=== PATIENT | female | born 1955 | race Two or more races ===

== ENCOUNTER 2016-10-23 15:02 | Emergency (ER) | payer OTHER ==
--- NOTE | 2016-10-23 15:49 | ER Document Report ---
ED Cardiac - General Mode of Arrival: Ambulatory Information source: Patient TRAVEL OUTSIDE OF THE [place] IN LAST 30 DAYS: No - HPI Patient complains to provider of: Other - chest wall pain, reproducible Chest pain radiation location: Back <NICHOLE TAPIA - Last Filed: 10/23/16 17:22> <KIRK HOROWITZ - Last Filed: 10/23/16 23:41> - General Chief Complaint: Chest Pain Stated Complaint: CHEST PAIN Notes: Patient is a 61-year-old female that presents to the emergency department today with complaints of reproducible chest pain. Patient states she had mild discomfort last night and the pain increased this morning upon awakening. Patient states that her pain is exacerbated with arm movement. Patient states the pain radiates to her right upper back with movement of her right upper extremity. Patient has a history of rheumatoid arthritis. Patient walks with a cane and does hold the cane in her right upper extremity at all times. Patient denies any recent travel, cough, or fevers. (NICHOLE TAPIA) - Related Data Allergies/Adverse Reactions: Penicillins Allergy (Verified 10/23/16 15:45) shellfish derived Allergy (Verified 10/23/16 16:52) Past Medical History - General Information source: Patient - Social History Smoking Status: Unknown if Ever Smoked Cigarette use (# per day): No Frequency of alcohol use: None Drug Abuse: None Lives with: Family Family History: Reviewed & Not Pertinent Musculoskeltal Medical History: Reports Hx Arthritis - Rheumatoid Surgical Hx: Negative <NICHOLE TAPIA - Last Filed: 10/23/16 17:22> Review of Systems - Review of Systems Constitutional: denies: Fever EENT: No symptoms reported Cardiovascular: See HPI, Chest pain - reproducible Respiratory: denies: Cough Gastrointestinal: No symptoms reported Genitourinary: No symptoms reported Female Genitourinary: No symptoms reported Musculoskeletal: See HPI, Joint pain - RUE pain radiating to right upper back Skin: No symptoms reported Hematologic/Lymphatic: No symptoms reported Neurological/Psychological: No symptoms reported -: Yes All other systems reviewed and negative <NICHOLE TAPIA - Last Filed: 10/23/16 17:22> Physical Exam <NICHOLE TAPIA - Last Filed: 10/23/16 17:22> <KIRK HOROWITZ - Last Filed: 10/23/16 23:41> - Vital signs Vitals: Temp Pulse Resp BP Pulse Ox 97.9 F 97 20 147/83 H 98 10/23/16 15:18 10/23/16 15:18 10/23/16 15:18 10/23/16 15:18 10/23/16 15:18 - Notes Notes: Physical Exam: General: Alert, appears well. HEENT: Normocephalic. Atraumatic. PERRL. Extraocular movements intact. Oropharynx clear. Neck: Supple. Non-tender. Respiratory: No respiratory distress. Clear and equal breath sounds bilaterally. Reproducible right chest wall tenderness with palpation. Cardiovascular: Regular rate and rhythm. Reproducible chest pain. Abdominal: Obese. Non-tender. No distension. Normal Bowel Sounds. Back: Right medial scapula tenderness with palpation, Right axilla tenderness with palpation which reproduces pain down the right arm. No deformity or step off. Extremities: Moves all four extremities. Upper extremities: Right axilla tenderness with palpation which reproduces pain down the right arm. Lower extremities: Normal inspection. No edema. Normal ROM. Neurological: Normal cognition. AAOx4. Normal speech. Psychological: Normal affect. Normal Mood. Skin: Warm. Dry. Normal color. (NICHOLE TAPIA) Course - Laboratory Result Diagrams: 10/23/16 15:35 10/23/16 15:35 <NICHOLE TAPIA - Last Filed: 10/23/16 17:22> - Laboratory Result Diagrams: 10/23/16 15:35 10/23/16 15:35 - Diagnostic Test Radiology reviewed: Reports reviewed - EKG Interpretation by Ks EKG shows normal: Sinus rhythm Rate: Normal Rhythm: NSR <KIRK HOROWITZ - Last Filed: 10/23/16 23:41> - Re-evaluation Re-evalutation: 10/23/16 19:30 Patient is a 61-year-old female who comes in complaining of chest pain. It is right-sided and reproducible. Did not start today. Patient feels better after soma. No acute findings on EKG. Troponin negative 2. Patient will be discharged home with pain medication and is to follow-up with her doctor. Understands agrees with plan. Stable for discharge. (KIRK HOROWITZ) - Vital Signs Vital signs: Temp Pulse Resp BP Pulse Ox 98.1 F 73 18 137/85 H 96 10/23/16 20:30 10/23/16 20:30 10/23/16 20:30 10/23/16 20:30 10/23/16 20:30 - Laboratory Laboratory results interpreted by me: 10/23/16 10/23/16 15:35 15:35 RDW 14.4 H Glucose 124 H Discharge <NICHOLE TAPIA - Last Filed: 10/23/16 17:22> <KIRK HOROWITZ - Last Filed: 10/23/16 23:41> - Discharge Clinical Impression: Atypical chest pain, Upper back pain on right side Condition: Stable Disposition: HOME, SELF-CARE Instructions: Chest Wall Pain ([facility]), Upper Back Strain ([facility]) Prescriptions: Carisoprodol [Soma 350 Mg Tablet] 350 mg PO BIDP PRN #30 tablet PRN Reason: Referrals: RUTH KIRK MD [Primary Care Provider] - Follow up in 3-5 days Scribe Attestation: 10/23/16 23:41 I personally performed the services described in the documentation, reviewed and edited the documentation which was dictated to the scribe in my presence, and it accurately records my words and actions. (KIRK HOROWITZ) Scribe Documentation - Scribe Written by Scribe:: Aguilar Vasquez, 10/23/2016 1726 acting as scribe for :: Alexandra <NICHOLE TAPIA - Last Filed: 10/23/16 17:22>
[2016-10-23 15:58] LABS: ABSOLUTE EOSINOPHILS # (AUTO) 0.1 10^3/uL (0.0-0.6); ABSOLUTE MONOCYTES (AUTO) 0.4 10^3/uL (0.1-1.4); ABSOLUTE NEUT (AUTO) 4.4 10^3/uL (1.7-8.2); BASOPHILS % (AUTO) 0.8 % (0-2); EOSINOPHILS % (AUTO) 1.5 % (0-6); HEMATOCRIT 38.1 % (36.0-47.0); HEMOGLOBIN 12.5 g/dL (12.0-15.5); HGB HCT DIFFERENCE -0.6; MEAN CORPUSCULAR HGB CONC 32.7 g/dL (32.0-36.0); MEAN CORPUSCULAR VOLUME 86 fl (80-97); MONOCYTES % (AUTO) 7.1 % (3-13); RED BLOOD COUNT 4.46 10^6/uL (3.72-5.28); RED CELL DISTRIBUTION WIDTH 14.4 % (11.5-14.0); SEGMENTED NEUTROPHILS % (AUTO) 73.6 % (42-78)
[2016-10-23 16:16] LABS: ALANINE AMINOTRANSFERASE 42 U/L (9-52); ALKALINE PHOSPHATASE 71 U/L (38-126); ANION GAP 14 (5-19); ASPARTATE AMINO TRANSFERASE 27 U/L (14-36); BILIRUBIN,DIRECT 0.2 mg/dL (0.0-0.4); BILIRUBIN,TOTAL 0.6 mg/dL (0.2-1.3); BLOOD UREA NITROGEN 19 mg/dL (7-20); CALCIUM 8.9 mg/dL (8.4-10.2); CARBON DIOXIDE 22 mmol/L (22-30); CHLORIDE 105 mmol/L (98-107); CREATINE KINASE 84 U/L (30-135); CREATININE RESULT 0.76 mg/dL (0.52-1.25); GLUCOSE 124 mg/dL (75-110); POTASSIUM 4.3 mmol/L (3.6-5.0); TOTAL PROTEIN 6.3 g/dL (6.3-8.2)
[2016-10-23] MEDS ORDERED: DIAZEPAM 2 MG TABLET PO ONE (16:18)
[2016-10-23 16:28] LABS: CREATINE KINASE MB 0.91 ng/mL (<4.55)
[2016-10-23 16:31] LABS: TROPONIN I < 0.012 ng/mL
[2016-10-23] MEDS ORDERED: MORPHINE SULFATE 10 MG/ML INJ IV ONE (18:05)
--- NOTE | 2016-10-23 18:06 | EKG REPORT ---
SEVERITY:- BORDERLINE ECG - SINUS RHYTHM BORDERLINE LEFT AXIS DEVIATION BORDERLINE PROLONGED QT INTERVAL : Confirmed by: Rom Lou MD 23-Oct-2016 18:05:22
[2016-10-23] MEDS ORDERED: CARISOPRODOL 350 MG TABLET PO ONE (19:09)
[2016-10-23 20:31] VITALS: BP 137/85
== END 2016-10-23 20:32 | disposition home or self-care (01) ==
LOC: ER 15:02
DX: R07.9 Chest pain, unspecified (principal); M54.6 Pain in thoracic spine
CPT/HCPCS: 93005; 99285; 96374; 36415; 82553; 82550; 85025; 80053; 84484; 71010; 93010; J3490 ×2; J2270

== ENCOUNTER → 2016-12-14 | Outpatient (CLI) | payer OTHER ==
--- NOTE | 2016-12-29 08:16 | WOMENS IMAGING REPORT ---
EXAM DESCRIPTION: BILAT DIAGNOSTIC MAMMO W/CAD; U/S BREAST UNILATERAL, COMPL COMPLETED DATE/TIME: 12/14/2016 9:17 am; 12/14/2016 10:24 am REASON FOR STUDY: R92.8; RT BREAST,R92.8 R92.8 OTH ABN AND INCONCLUSIVE FINDINGS ON DX IMAGING OF B RE COMPARISON: None. Lexiscan myocardial perfusion Cardiolite exam report only 11/12/2016 Prior mammograms 07/18/2014, 12/27/2011 TECHNIQUE: Standard craniocaudal and mediolateral oblique views of each breast recorded using digita l acquisition. Right breast breast craniocaudad and 90 mediolateral tomosynthesis. Right breast ultrasound LIMITATIONS: None. FINDINGS: RIGHT BREAST MASSES: No suspicious masses. CALCIFICATIONS: No new or suspicious calcifications. ARCHITECTURAL DISTORTION: None. DEVELOPING DENSITY: None. ASYMMETRY: None noted. OTHER: No other significant findings. LEFT BREAST MASSES: No suspicious masses. CALCIFICATIONS: No new or suspicious calcifications. ARCHITECTURAL DISTORTION: None. DEVELOPING DENSITY: None. ASYMMETRY: None noted. OTHER: No other significant finding. Read with the assistance of CAD: .[facility] - R2 Cenova Version 1.3 .[facility] Imaging - R2 Cenova Version 1.3 .[facility] Imaging - R2 Cenova Version 2.4 .[facility] - R2 Cenova Version 2.4 .[facility] - R2 Conditioning Machine Operator Version 9.2 Right breast ultrasound: Ultrasound of the entire right breast was performed. No cystic or solid lesions. No focal acoustic absorption. No focal findings. IMPRESSION: No mammographic or sonographic evidence for malignancy bilaterally. Outside report demonstrates focal right breast uptake with sestamibi. Sestamibi breast parenchymal u ptake could be seen and occult malignancy, and MRI bilateral breasts with contrast is recommended for follow-up. BREAST DENSITY: b. There are scattered areas of fibroglandular density. BIRAD: 0 Incomplete: Needs additional imaging evaluation and/or prior mammograms for comparison. MRI bilateral breasts with contrast recommended RECOMMENDATION: RECOMMENDED FOLLOW UP: Bilateral breast MRI with contrast is recommended, to exclude occult malignancy in the right breast. SPECIFIC INTERVENTION/IMAGING/CONSULTATION RECOMMENDED:Bilateral breast MRI COMMUNICATION:These results were discussed with Dr Sousa's nurse, Emily. COMMENT: The patient has been notified of the results by letter per MQSA requirements. Additional no tification policies are in place for contacting patient with suspicious or incomplete findings. Quality ID #[id number]: The [employer] recommends an annual screening mammogram for women aged 40 years or over. This facility utilizes a reminder system to ensure that all patients receive reminder letters, and/or direct phone calls for appointments. This includes reminders for routine scr eening mammograms, diagnostic mammograms, or other Breast Imaging Interventions when appropriate. Th is patient will be placed in the appropriate reminder system. The [employer] (ACR) has developed recommendations for screening MRI of the breast s in certain patient populations, to be used in conjunction with mammography. Breast MRI surveillanc e may be appropriate for women with more than 20% lifetime risk of developing breast cancer as deter mined by genetic testing, significant family history of the disease, or history of mantle radiation f or Hodgkins Disease. ACR Practice Guidelines 2008. DBT Technology DBT is a type of tomographic mammography. With conventional mammography, overlapping breast tissue ma y make lesions difficult to detect, even with good compression. DBT uses an x-ray tube that rotates a round the breast, taking images at different angles. These images are then combined to create thin sl ices of the breast that the radiologist can view as a 3D reconstruction. The [employer] unit can perform full-field digital mammograms (2D imaging); or DBT (3D imaging); or both, in a combination mode that quickly performs both the mammogram and the tomosynthesis scan while the breast is still compressed. PQRS 6045F: Fluoroscopic imaging is not utilized for breast tomosynthesis. TECHNICAL DOCUMENTATION: FINDING NUMBER: (1) ASSESSMENT: (1) JOB ID: [id number] [employer]- All Rights Reserved
--- NOTE | 2016-12-29 08:16 | WOMENS IMAGING REPORT ---
EXAM DESCRIPTION: BILAT DIAGNOSTIC MAMMO W/CAD; U/S BREAST UNILATERAL, COMPL COMPLETED DATE/TIME: 12/14/2016 9:17 am; 12/14/2016 10:24 am REASON FOR STUDY: R92.8; RT BREAST,R92.8 R92.8 OTH ABN AND INCONCLUSIVE FINDINGS ON DX IMAGING OF B RE COMPARISON: None. Lexiscan myocardial perfusion Cardiolite exam report only 11/12/2016 Prior mammograms 07/18/2014, 12/27/2011 TECHNIQUE: Standard craniocaudal and mediolateral oblique views of each breast recorded using digita l acquisition. Right breast breast craniocaudad and 90 mediolateral tomosynthesis. Right breast ultrasound LIMITATIONS: None. FINDINGS: RIGHT BREAST MASSES: No suspicious masses. CALCIFICATIONS: No new or suspicious calcifications. ARCHITECTURAL DISTORTION: None. DEVELOPING DENSITY: None. ASYMMETRY: None noted. OTHER: No other significant findings. LEFT BREAST MASSES: No suspicious masses. CALCIFICATIONS: No new or suspicious calcifications. ARCHITECTURAL DISTORTION: None. DEVELOPING DENSITY: None. ASYMMETRY: None noted. OTHER: No other significant finding. Read with the assistance of CAD: .[facility] - R2 Cenova Version 1.3 .[facility] Imaging - R2 Cenova Version 1.3 .[facility] Imaging - R2 Cenova Version 2.4 .[facility] - R2 Cenova Version 2.4 .[facility] - R2 Erp Manager Version 9.2 Right breast ultrasound: Ultrasound of the entire right breast was performed. No cystic or solid lesions. No focal acoustic absorption. No focal findings. IMPRESSION: No mammographic or sonographic evidence for malignancy bilaterally. Outside report demonstrates focal right breast uptake with sestamibi. Sestamibi breast parenchymal u ptake could be seen and occult malignancy, and MRI bilateral breasts with contrast is recommended for follow-up. BREAST DENSITY: b. There are scattered areas of fibroglandular density. BIRAD: 0 Incomplete: Needs additional imaging evaluation and/or prior mammograms for comparison. MRI bilateral breasts with contrast recommended RECOMMENDATION: RECOMMENDED FOLLOW UP: Bilateral breast MRI with contrast is recommended, to exclude occult malignancy in the right breast. SPECIFIC INTERVENTION/IMAGING/CONSULTATION RECOMMENDED:Bilateral breast MRI COMMUNICATION:These results were discussed with Dr Sousa's nurse, Emily. COMMENT: The patient has been notified of the results by letter per MQSA requirements. Additional no tification policies are in place for contacting patient with suspicious or incomplete findings. Quality ID #225: The [employer] [place] [employer] recommends an annual screening mammogram for women aged 40 years or over. This facility utilizes a reminder system to ensure that all patients receive reminder letters, and/or direct phone calls for appointments. This includes reminders for routine scr eening mammograms, diagnostic mammograms, or other Breast Imaging Interventions when appropriate. Th is patient will be placed in the appropriate reminder system. The [employer] [place] [employer] (ACR) has developed recommendations for screening MRI of the breast s in certain patient populations, to be used in conjunction with mammography. Breast MRI surveillanc e may be appropriate for women with more than 20% lifetime risk of developing breast cancer as deter mined by genetic testing, significant family history of the disease, or history of mantle radiation f or Hodgkins Disease. ACR Practice Guidelines 2008. DBT Technology DBT is a type of tomographic mammography. With conventional mammography, overlapping breast tissue ma y make lesions difficult to detect, even with good compression. DBT uses an x-ray tube that rotates a round the breast, taking images at different angles. These images are then combined to create thin sl ices of the breast that the radiologist can view as a 3D reconstruction. The [employer] unit can perform full-field digital mammograms (2D imaging); or DBT (3D imaging); or both, in a combination mode that quickly performs both the mammogram and the tomosynthesis scan while the breast is still compressed. PQRS 6045F: Fluoroscopic imaging is not utilized for breast tomosynthesis. TECHNICAL DOCUMENTATION: FINDING NUMBER: (1) ASSESSMENT: (1) JOB ID: [id number] [employer]- All Rights Reserved
== END ==
LOC: WI 09:00
PROVIDERS: ATTEND Obstetrics & Gynecology
DX: R92.8 Other abnormal and inconclusive findings on diagnostic imaging of breast (principal)
CPT/HCPCS: 76641; G0204; 77066

== ENCOUNTER → 2017-01-03 | Outpatient (CLI) | payer OTHER ==
--- NOTE | 2017-01-05 10:11 | RADIOLOGY REPORT (SQ) ---
EXAM DESCRIPTION: MRI BREAST BILAT W AND/OR WO COMPLETED DATE/TIME: 01/03/2017 2:19 pm REASON FOR STUDY: ABN LEXISCAN R92.8 OTH ABN AND INCONCLUSIVE FINDINGS ON DX IMAGING OF ODIN R93.1 ABNORMAL FINDINGS ON DX IMAGING OF HEART AND COR CIRC COMPARISON: Mammograms 12/24/2011, 07/18/2014, 12/14/2016 Breast ultrasound 07/18/2014, 12/14/2016 PATHOLOGIC CORRELATION: No biopsy performed. Patient had a Cardiolite sestamibi exam demonstrating some right breast activity on outside study. CONTRAST TYPE AND DOSE: 20 mL Multihance. RENAL FUNCTION: GFR > 60. TECHNIQUE: MR imaging performed with a dedicated breast coil. Pre contrast T1 and T2 weighted images . Pre contrast and post contrast enhanced T1 weighted images with fat saturation. Subtraction images, 3D thick and thin MIPS, and kinetic analysis performed on an independent workstat ion. ([employer] workstation) Magnet strength: 1.5 T LIMITATIONS: None. FINDINGS: BREAST DENSITY: b. There are scattered areas of fibroglandular density. BACKGROUND PARENCHYMAL ENHANCEMENT:None. RIGHT BREAST: No enhancing or suspicious masses. No clumped, regional/segmental ductal enhancement. CHEST WALL: Normal tissue planes. No abnormal internal mammary nodes. AXILLA: Normal axillary and retro-pectoral nodes. LEFT BREAST:No enhancing or suspicious masses. No clumped, regional/segmental ductal enhancement. CHEST WALL: Normal tissue planes. No abnormal internal mammary nodes. AXILLA: Normal axillary and retro-pectoral nodes. OTHER:No identified liver, bone, or lung lesions. No other significant incidental findings. IMPRESSION: NORMAL MR OF THE BREASTS. BIRAD: RIGHT BREAST: 1 Negative. LEFT BREAST: 1 Negative. RECOMMENDATION: RECOMMENDED FOLLOW-UP: Please continue bilateral screening mammography in December 2017 TECHNICAL DOCUMENTATION: JOB ID: [id number] [employer]- All Rights Reserved
== END ==
LOC: RAD 12:21
PROVIDERS: ATTEND Obstetrics & Gynecology
DX: R92.8 Other abnormal and inconclusive findings on diagnostic imaging of breast (principal); R93.1 Abnormal findings on diagnostic imaging of heart and coronary circulation
CPT/HCPCS: 82565; A9576; C8906; 77059

== ENCOUNTER → 2017-11-07 | Outpatient (CLI) | payer OTHER ==
[2017-11-07 10:18] LABS: HEMATOCRIT 39.2 % (36.0-47.0); HEMOGLOBIN 12.8 g/dL (12.0-15.5); MEAN CORPUSCULAR HEMOGLOBIN 28.1 pg (27.0-33.4); MEAN CORPUSCULAR HGB CONC 32.7 g/dL (32.0-36.0); MEAN CORPUSCULAR VOLUME 86 fl (80-97); PLATELET COUNT 183 10^3/uL (150-450); RED BLOOD COUNT 4.55 10^6/uL (3.72-5.28); RED CELL DISTRIBUTION WIDTH 14.1 % (11.5-14.0); WHITE BLOOD COUNT 4.9 10^3/uL (4.0-10.5)
[2017-11-07 10:37] LABS: ALANINE AMINOTRANSFERASE 40 U/L (9-52); ALBUMIN 3.9 g/dL (3.5-5.0); ALKALINE PHOSPHATASE 63 U/L (38-126); ANION GAP 11 (5-19); ASPARTATE AMINO TRANSFERASE 28 U/L (14-36); BILIRUBIN,DIRECT 0.3 mg/dL (0.0-0.4); BILIRUBIN,TOTAL 0.8 mg/dL (0.2-1.3); BLOOD UREA NITROGEN 20 mg/dL (7-20); CALCIUM 9.1 mg/dL (8.4-10.2); CARBON DIOXIDE 27 mmol/L (22-30); CHLORIDE 106 mmol/L (98-107); CREATINE KINASE 98 U/L (30-135); GLUCOSE 109 mg/dL (75-110); POTASSIUM 4.3 mmol/L (3.6-5.0); SODIUM 143.7 mmol/L (137-145); TOTAL PROTEIN 6.3 g/dL (6.3-8.2); TRIGLYCERIDES 157 mg/dL (<150)
[2017-11-07 10:48] LABS: DIRECT LDL 51 mg/dL (<100)
[2017-11-07 10:52] LABS: VLDL CHOLESTEROL 31.4 mg/dL (10-31)
== END ==
LOC: OD 09:22
PROVIDERS: ATTEND Obstetrics & Gynecology
DX: E11.9 Type 2 diabetes mellitus without complications (principal); I10 Essential (primary) hypertension; E78.5 Hyperlipidemia, unspecified; E03.9 Hypothyroidism, unspecified; M05.9 Rheumatoid arthritis with rheumatoid factor, unspecified; Z79.899 Other long term (current) drug therapy
CPT/HCPCS: 36415; 80053; 80061; 82550; 83036; 84443; 85027

== ENCOUNTER 2018-11-16 16:16 | Emergency (ER) | payer MEDICARE, OTHER ==
--- NOTE | 2018-11-16 17:06 | ER Document Report ---
ED Medical Screen (RME) - General Chief Complaint: Shortness Of Breath Stated Complaint: SOB Time Seen by Provider: 11/16/18 17:01 Primary Care Provider: RUTH KIRK MD [Primary Care Provider] - Follow up as needed Information source: Patient, Dr. Office Notes: Patient presents to the emergency department for chest pain shortness of breath since last week. Patient was evaluated by Dr. Kirk today labs chest x-ray EKG was done he reports he could not find anything wrong but is concerned about the patient. He reports she is not doing very well. Upon assessment patient is laughing no distress. She was instructed that Dr. Kirk was very concerned about her and labs and EKG would be repeated. I have greeted and performed a rapid initial assessment of this patient. A comprehensive ED assessment and evaluation of the patient, analysis of test results and completion of the medical decision making process will be conducted by additional ED providers. Dictation of this chart was performed using voice recognition software; therefore, there may be some unintended grammatical errors. TRAVEL OUTSIDE OF THE [place] IN LAST 30 DAYS: No - Related Data Allergies/Adverse Reactions: acetaminophen [From Vicodin] Allergy (Verified 11/16/18 17:24) hydrocodone [From Vicodin] Allergy (Verified 11/16/18 17:24) Penicillins Allergy (Verified 10/23/16 15:45) shellfish derived Allergy (Verified 10/23/16 16:52) Past Medical History Renal/ Medical History: Denies: Hx Peritoneal Dialysis Musculoskeltal Medical History: Reports Hx Arthritis - Rheumatoid Physical Exam - Vital signs Vitals: Temp Pulse Resp BP Pulse Ox 98.1 F 88 16 133/75 H 98 11/16/18 16:24 11/16/18 16:24 11/16/18 16:24 11/16/18 16:24 11/16/18 16:24 Course - Vital Signs Vital signs: Temp Pulse Resp BP Pulse Ox 98.1 F 88 16 133/75 H 98 11/16/18 16:24 11/16/18 16:24 11/16/18 16:24 11/16/18 16:24 11/16/18 16:24 Doctor's Discharge - Discharge Referrals: RUTH KIRK MD [Primary Care Provider] - Follow up as needed
[2018-11-16 18:51] LABS: ABSOLUTE EOSINOPHILS # (AUTO) 0.1 10^3/uL (0.0-0.6); ABSOLUTE LYMPHOCYTES (AUTO) 0.6 10^3/uL (0.5-4.7); ABSOLUTE MONOCYTES (AUTO) 0.3 10^3/uL (0.1-1.4); ABSOLUTE NEUT (AUTO) 3.6 10^3/uL (1.7-8.2); EOSINOPHILS % (AUTO) 1.5 % (0-6); HEMATOCRIT 38.5 % (36.0-47.0); HEMOGLOBIN 12.8 g/dL (12.0-15.5); LYMPHOCYTES % (AUTO) 13.7 % (13-45); MEAN CORPUSCULAR HEMOGLOBIN 28.7 pg (27.0-33.4); MEAN CORPUSCULAR HGB CONC 33.2 g/dL (32.0-36.0); MEAN CORPUSCULAR VOLUME 86 fl (80-97); MONOCYTES % (AUTO) 7.1 % (3-13); PLATELET COUNT 159 10^3/uL (150-450); RED BLOOD COUNT 4.47 10^6/uL (3.72-5.28); RED CELL DISTRIBUTION WIDTH 14.2 % (11.5-14.0); SEGMENTED NEUTROPHILS % (AUTO) 76.7 % (42-78); TOTAL CELLS COUNTED % (AUTO) 100 %; WHITE BLOOD COUNT 4.6 10^3/uL (4.0-10.5)
[2018-11-16 18:55] LABS: INTERNATIONAL RATION (INR) 0.97; PROTHROMBIN TIME 13.4 SEC (11.4-15.4)
[2018-11-16 19:13] LABS: ALANINE AMINOTRANSFERASE 33 U/L (9-52); ALBUMIN 3.8 g/dL (3.5-5.0); ALKALINE PHOSPHATASE 58 U/L (38-126); ANION GAP 8 (5-19); ASPARTATE AMINO TRANSFERASE 27 U/L (14-36); BILIRUBIN,DIRECT 0.2 mg/dL (0.0-0.4); BILIRUBIN,TOTAL 0.4 mg/dL (0.2-1.3); BLOOD UREA NITROGEN 17 mg/dL (7-20); CALCIUM 9.1 mg/dL (8.4-10.2); CARBON DIOXIDE 27 mmol/L (22-30); CHLORIDE 104 mmol/L (98-107); CREATINE KINASE 131 U/L (30-135); GLUCOSE 119 mg/dL (75-110); POTASSIUM 4.1 mmol/L (3.6-5.0); SODIUM 139.2 mmol/L (137-145); TOTAL PROTEIN 6.1 g/dL (6.3-8.2)
[2018-11-16 19:24] LABS: CREATINE KINASE MB 1.14 ng/mL (<4.55)
[2018-11-16 19:28] LABS: TROPONIN I < 0.012 ng/mL
--- NOTE | 2018-11-16 19:41 | EKG REPORT ---
SEVERITY:- BORDERLINE ECG - SINUS RHYTHM BORDERLINE LEFT AXIS DEVIATION BORDERLINE T ABNORMALITIES, ANTERIOR LEADS BORDERLINE PROLONGED QT INTERVAL : Confirmed by: Mirta Dubon MD 16-Nov-2018 19:40:47
--- NOTE | 2018-11-16 21:10 | ER Document Report ---
ED Respiratory Problem - General Chief Complaint: Shortness Of Breath Stated Complaint: SOB Time Seen by Provider: 11/16/18 17:01 Primary Care Provider: RUTH KIRK MD [Primary Care Provider] - Follow up as needed Notes: Patient is a 63-year-old female that comes emergency department for chief complaint of intermittent shortness of breath over the past week. She states that this is not constant, at times she feels like there is "mucus in her chest", she denies cough, fever, dizziness, chest pain, nausea/vomiting, abdominal pain. She also reports intermittent cramps in her legs. Past medical history includes rheumatoid arthritis (on weekly methotrexate and on Plaquenil), thyroidism, hyperlipidemia, and she has limited mobility because of rheumatoid arthritis damage in her legs. She walks minimally with a walker. She lives at home with her son who is at bedside. She was seen by her primary care Dr. Sánchez, sent over here for further evaluation after a negative chest x-ray. TRAVEL OUTSIDE OF THE [place] IN LAST 30 DAYS: No - Related Data Allergies/Adverse Reactions: acetaminophen [From Vicodin] Allergy (Verified 11/16/18 17:24) hydrocodone [From Vicodin] Allergy (Verified 11/16/18 17:24) Penicillins Allergy (Verified 10/23/16 15:45) shellfish derived Allergy (Verified 10/23/16 16:52) Past Medical History - General Information source: Patient, [facility] - Social History Smoking Status: Former Smoker Frequency of alcohol use: None Drug Abuse: None Lives with: Family Family History: Reviewed & Not Pertinent Patient has suicidal ideation: No Patient has homicidal ideation: No - Past Medical History Cardiac Medical History: Reports: Hx Hypercholesterolemia, Hx Hypertension Pulmonary Medical History: Reports: Hx Asthma Endocrine Medical History: Reports: Hx Diabetes Mellitus Type 2 Renal/ Medical History: Denies: Hx Peritoneal Dialysis Musculoskeletal Medical History: Reports Hx Arthritis - Rheumatoid Past Surgical History: Reports: Hx Tubal Ligation Review of Systems - Review of Systems Constitutional: No symptoms reported EENT: No symptoms reported Cardiovascular: See HPI Respiratory: See HPI Gastrointestinal: No symptoms reported Genitourinary: No symptoms reported Female Genitourinary: No symptoms reported Musculoskeletal: See HPI Skin: No symptoms reported Hematologic/Lymphatic: No symptoms reported Neurological/Psychological: No symptoms reported Physical Exam - Vital signs Vitals: Temp Pulse Resp BP Pulse Ox 98.1 F 88 16 133/75 H 98 11/16/18 16:24 11/16/18 16:24 11/16/18 16:24 11/16/18 16:24 11/16/18 16:24 - Notes Notes: GENERAL: Alert, interacts well. No acute distress. Obese HEAD: Normocephalic, atraumatic. EYES: Pupils equal, round, and reactive to light. Extraocular movements intact. ENT: Oral mucosa moist, tongue midline. Oropharynx unremarkable. Airway patent. NECK: Full range of motion. Supple. Trachea midline. LUNGS: Clear to auscultation bilaterally, no wheezes, rales, or rhonchi. No respiratory distress. HEART: Regular rate and rhythm. No murmur ABDOMEN: Soft, non-tender. Non-distended. Bowel sounds present in all 4 quadrants. GENITOURINARY: Deferred EXTREMITIES: Moves all 4 extremities spontaneously. No edema, normal radial and dorsalis pedis pulses bilaterally. No cyanosis. BACK: no cervical, thoracic, lumbar midline tenderness. No saddle anesthesia, normal distal neurovascular exam. NEUROLOGICAL: Alert and oriented x3. Normal speech. Cranial nerves II through XII grossly intact. PSYCH: Normal affect, normal mood. SKIN: Warm, dry, normal turgor. No rashes or lesions noted. Course - Re-evaluation Re-evalutation: Patient denies shortness of breath on my evaluation. She denies any other symptoms as well. She is alert and well-appearing. I do not see any swelling in the lower extremities. She is not hypoxic, tachypneic, and has no signs of distress. She is smiling, laughing, well-appearing. Chest x-ray from earlier was accessed by the system and this was noted to be normal. Troponin is not elevated, chemistry unremarkable, CBC unremarkable. Because of reported leg cramps earlier magnesium was checked but was unremarkable. I discussed with patient. She is requesting to leave. Because of her immobility and history of rheumatoid arthritis I did recommend at least d-dimer evaluation for her intermittent shortness of breath symptoms if not a CTA. Patient agrees to d-dimer. D-dimer was found to be negative. As result I do have a low suspicion of any acute abnormality causing her symptoms. Patient states that she will follow-up closely with your primary care, she was discharged with return precautions. - Vital Signs Vital signs: Temp Pulse Resp BP Pulse Ox 97.3 F 88 17 144/89 H 98 11/16/18 22:00 11/16/18 16:24 11/16/18 21:10 11/16/18 21:10 11/16/18 21:10 - Laboratory Result Diagrams: 11/16/18 17:45 11/16/18 17:45 Laboratory results interpreted by me: 11/16/18 11/16/18 17:45 17:45 RDW 14.2 H Glucose 119 H Total Protein 6.1 L - EKG Interpretation by Me Additional EKG results interpreted by me: EKG shows sinus rhythm, no T wave inversions or ST segment changes in consecutive leads, normal axis. Discharge - Discharge Clinical Impression: Shortness of breath, Leg cramps Condition: Stable Disposition: HOME, SELF-CARE Additional Instructions: Your evaluation and work-up at this time is reassuring. Follow-up closely with primary care for additional evaluation and treatment. Return if you worsen including return to difficulty breathing, chest pain, fever/chills, swelling of your legs, or any other concerning or worsening symptoms. Referrals: RUTH KIRK MD [Primary Care Provider] - Follow up as needed
[2018-11-16 21:44] VITALS: BP 144/89
== END 2018-11-16 22:01 | disposition home or self-care (01) ==
LOC: ER 16:16
DX: J45.909 Unspecified asthma, uncomplicated (principal); R06.02 Shortness of breath; R25.2 Cramp and spasm; E11.9 Type 2 diabetes mellitus without complications; M06.9 Rheumatoid arthritis, unspecified; Z79.899 Other long term (current) drug therapy; Z87.891 Personal history of nicotine dependence; Z88.6 Allergy status to analgesic agent; Z88.5 Allergy status to narcotic agent; Z88.0 Allergy status to penicillin; Z91.013 Allergy to seafood
CPT/HCPCS: 36415; 80053; 82550; 82553; 83735; 84484; 85025; 85379; 85610; 93005; 93010; 99285

== ENCOUNTER → 2018-11-16 | Outpatient (CLI) | payer MEDICARE, OTHER ==
[2018-11-16 11:55] LABS: ABSOLUTE EOSINOPHILS # (AUTO) 0.1 10^3/uL (0.0-0.6); ABSOLUTE LYMPHOCYTES (AUTO) 0.6 10^3/uL (0.5-4.7); ABSOLUTE MONOCYTES (AUTO) 0.3 10^3/uL (0.1-1.4); ABSOLUTE NEUT (AUTO) 2.9 10^3/uL (1.7-8.2); EOSINOPHILS % (AUTO) 1.5 % (0-6); HEMATOCRIT 38.3 % (36.0-47.0); HEMOGLOBIN 12.9 g/dL (12.0-15.5); LYMPHOCYTES % (AUTO) 15.9 % (13-45); MEAN CORPUSCULAR HEMOGLOBIN 28.7 pg (27.0-33.4); MEAN CORPUSCULAR HGB CONC 33.6 g/dL (32.0-36.0); MEAN CORPUSCULAR VOLUME 85 fl (80-97); MONOCYTES % (AUTO) 7.7 % (3-13); PLATELET COUNT 136 10^3/uL (150-450); RED BLOOD COUNT 4.49 10^6/uL (3.72-5.28); RED CELL DISTRIBUTION WIDTH 14.1 % (11.5-14.0); SEGMENTED NEUTROPHILS % (AUTO) 73.9 % (42-78); TOTAL CELLS COUNTED % (AUTO) 100 %; WHITE BLOOD COUNT 3.9 10^3/uL (4.0-10.5)
--- NOTE | 2018-11-16 12:40 | RADIOLOGY REPORT (SQ) ---
EXAM DESCRIPTION: CHEST PA/LATERAL COMPLETED DATE/TIME: 11/16/2018 12:06 pm REASON FOR STUDY: CHEST PAIN,SOB COMPARISON: Two-view chest 06/24/2014, 09/14/2012 EXAM PARAMETERS: NUMBER OF VIEWS: two views TECHNIQUE: Digital Frontal and Lateral radiographic views of the chest acquired. RADIATION DOSE: NA LIMITATIONS: none FINDINGS: LUNGS AND PLEURA: No opacities, masses or pneumothorax. No pleural effusion. MEDIASTINUM AND HILAR STRUCTURES: No masses or contour abnormalities. HEART AND VASCULAR STRUCTURES: Heart normal size. No evidence for failure. BONES: No acute findings. HARDWARE: None in the chest. OTHER: No other significant finding. IMPRESSION: NO SIGNIFICANT RADIOGRAPHIC FINDING IN THE CHEST. TECHNICAL DOCUMENTATION: JOB ID: [id number] [employer]- All Rights Reserved Reading location - IP/workstation name: [email or web address]
[2018-11-16 12:41] LABS: ALANINE AMINOTRANSFERASE 32 U/L (9-52); ALBUMIN 3.9 g/dL (3.5-5.0); ALKALINE PHOSPHATASE 63 U/L (38-126); ANION GAP 10 (5-19); ASPARTATE AMINO TRANSFERASE 24 U/L (14-36); BILIRUBIN,DIRECT 0.2 mg/dL (0.0-0.4); BILIRUBIN,TOTAL 0.5 mg/dL (0.2-1.3); BLOOD UREA NITROGEN 17 mg/dL (7-20); CALCIUM 9.2 mg/dL (8.4-10.2); CARBON DIOXIDE 27 mmol/L (22-30); CHLORIDE 103 mmol/L (98-107); GLUCOSE 113 mg/dL (75-110); POTASSIUM 4.1 mmol/L (3.6-5.0); SODIUM 140.1 mmol/L (137-145); TOTAL PROTEIN 6.3 g/dL (6.3-8.2)
--- NOTE | 2018-11-16 19:41 | EKG REPORT ---
SEVERITY:- BORDERLINE ECG - SINUS RHYTHM LOW VOLTAGE IN FRONTAL LEADS BORDERLINE PROLONGED QT INTERVAL : Confirmed by: Mirta Dubon MD 16-Nov-2018 19:40:49
== END ==
LOC: OD 11:20
PROVIDERS: ATTEND Obstetrics & Gynecology
DX: R07.9 Chest pain, unspecified (principal)
CPT/HCPCS: 36415; 71046; 80053; 84484; 85025; 85379; 93005; 93010

== ENCOUNTER 2019-09-07 11:14 | Emergency (ER) | payer MEDICARE, OTHER ==
[2019-09-07 11:30] VITALS: BP 106/68
--- NOTE | 2019-09-07 11:46 | ER Document Report ---
HPI - HPI Time Seen by Provider: 09/07/19 11:36 Pain Level: 2 Notes: Patient is a 64-year-old female who presents per the direction of her family doctor for something for her foot regarding a second metatarsal oblique fracture that occurred 5 days ago. Patient states that she is unable to get in with the orthopedic clinic that her family doctor tried referring her to until October. She otherwise has been able to ambulate and weight-bear with a limp. She does use a walker and cannot use crutches. No other concerns or complaints. Denies any headache, fever, head injury, neck pain, URI, sore throat, chest pain, palpitations, syncope, cough, shortness of breath, wheeze, dyspnea, abdominal pain, nausea/vomiting/diarrhea, urinary retention, dysuria, hematuria, loss of control of bowel or bladder, numbness/tingling, saddle anesthesia, muscle paralysis/weakness, or rash. - ROS Systems Reviewed and Negative: Yes All other systems reviewed and negative - MUSCULOSKELETAL Musculoskeletal: REPORTS: Extremity pain - R Foot - DERM Skin Color: Normal Past Medical History - Social History Smoking Status: Never Smoker Chew tobacco use (# tins/day): No Drug Abuse: None Family History: Reviewed & Not Pertinent Patient has suicidal ideation: No Patient has homicidal ideation: No - Past Medical History Cardiac Medical History: Reports: Hx Hypercholesterolemia, Hx Hypertension Pulmonary Medical History: Reports: Hx Asthma Endocrine Medical History: Reports: Hx Diabetes Mellitus Type 2 Renal/ Medical History: Denies: Hx Peritoneal Dialysis Musculoskeletal Medical History: Reports Hx Arthritis - Rheumatoid Past Surgical History: Reports: Hx Tubal Ligation Vertical Provider Document - CONSTITUTIONAL Agree With Documented VS: Yes Notes: PHYSICAL EXAMINATION: GENERAL: Well-appearing, well-nourished and in no acute distress. LUNGS: Breath sounds clear to auscultation bilaterally and equal. No wheezes rales or rhonchi. HEART: Regular rate and rhythm Musculoskeletal: Rt foot/ankle: + mild dorsal foot swelling. No ecchymosis or deformity. FROM to passive/active. Strength 5+/5. N/V intact distal. + tenderness to the 2nd metatarsal area. No bony tenderness of the ankle. Achilles intact. Extremities: No cyanosis, clubbing, or edema b/l. Peripheral pulses 2+. Capillary refill less than 3 seconds. NEUROLOGICAL: Normal speech, limping gait. Normal sensory, motor exams PSYCH: Normal mood, normal affect. SKIN: Warm, Dry, normal turgor, no rashes or lesions noted. - INFECTION CONTROL TRAVEL OUTSIDE OF THE [place] IN LAST 30 DAYS: No Course - Re-evaluation Re-evalutation: 09/07/19 11:51 Patient is an afebrile, well-hydrated, 64-year-old female who presents to the ED with a fracture to the Rt 2nd metatarsal. Pt brought her disc and report with her to confirm. Vitals are acceptable without any significant tachycardia, tachypnea, or hypoxia. PE is otherwise unremarkable for any neurovascular compromise, obvious tendon/ligament rupture, open fracture, septic joint. See XR result. Postop shoe was provided today. Patient declined splint at this time as she needs to ambulate with a walker. Patient declined any Tylenol or Motrin at this time. Patient is nontoxic-appearing. No other labs or imaging warranted at this time based on H&P. Conservative measures otherwise for symptoms. Recheck with your PCM in 3-5 days. Call orthopedics tomorrow to schedule an appointment for further evaluation and management. I did provide her with other clinics to try for an appointment. Return to the ED with any worsening/concerning symptoms otherwise as reviewed in discharge. Patient is in agreement. - Vital Signs Vital signs: Temp Pulse Resp BP Pulse Ox 97.5 F 71 18 106/68 98 09/07/19 11:29 09/07/19 11:29 09/07/19 11:29 09/07/19 11:29 09/07/19 11:29 Discharge - Discharge Clinical Impression: Foot fracture, right Qualifiers: Encounter type: initial encounter Fracture type: closed Qualified Code(s): S92.901A - Unspecified fracture of right foot, initial encounter for closed fracture Condition: Stable Disposition: HOME, SELF-CARE Additional Instructions: Rest, Ice, Compression, Elevation Tylenol/ibuprofen as needed F/u with your PCP in 3-5 days for a recheck Call orthopedics tomorrow to schedule an appointment for further evaluation and management Return to the ED with any worsening symptoms and/or development of fever, headache, chest pain, palpitations, syncope, shortness of breath, trouble breathing, abdominal pain, n/v/d, muscle weakness/paralysis, numbness/tingling, swelling, redness, or other worsening symptoms that are concerning to you. Referrals: WAQAR ALMENDAREZ DPM [ACTIVE STAFF] - Follow up as needed RUTH KIRK MD [Primary Care Provider] - Follow up as needed MARIA E HERMAN JR, [ACTIVE PROVISIONAL STAFF] - Follow up in 3-5 days
== END 2019-09-07 11:56 | disposition home or self-care (01) ==
LOC: ER 11:14
DX: S92.901A Unspecified fracture of right foot, initial encounter for closed fracture (principal); X58.XXXA Exposure to other specified factors, initial encounter; E11.9 Type 2 diabetes mellitus without complications; Z98.51 Tubal ligation status; E78.00 Pure hypercholesterolemia, unspecified; I10 Essential (primary) hypertension
CPT/HCPCS: 99283

== ENCOUNTER 2020-01-08 09:37 | Emergency (ER) | payer MEDICARE, OTHER ==
--- NOTE | 2020-01-08 10:35 | RADIOLOGY REPORT (SQ) ---
EXAM DESCRIPTION: CHEST SINGLE VIEW IMAGES COMPLETED DATE/TIME: 01/08/2020 10:10 am REASON FOR STUDY: SOB COMPARISON: 11/16/2018 EXAM PARAMETERS: NUMBER OF VIEWS: One view. TECHNIQUE: Single frontal radiographic view of the chest acquired. RADIATION DOSE: NA LIMITATIONS: None. FINDINGS: LUNGS AND PLEURA: No opacities, masses or pneumothorax. No pleural effusion. MEDIASTINUM AND HILAR STRUCTURES: No masses. Contour normal. HEART AND VASCULAR STRUCTURES: Heart normal in size. Normal vasculature. BONES: No acute findings. HARDWARE: None in the chest. OTHER: No other significant finding. IMPRESSION: NO ACUTE RADIOGRAPHIC FINDING IN THE CHEST. TECHNICAL DOCUMENTATION: JOB ID: [id number] 2010 [employer]- All Rights Reserved Reading location - IP/workstation name: [email or web address]
[2020-01-08] MEDS ORDERED: IPRATROPIUM/ALBUTEROL 0.5-2.5 MG/3 ML AMPUL NEB ONE (10:36)
[2020-01-08] MEDS ORDERED: PREDNISONE 20 MG TABLET PO ONE (10:36)
[2020-01-08] MEDS ORDERED: ALBUTEROL SULFATE 0.083% NEB 2.5 MG/3 ML AMPUL NEB SCH (10:52)
[2020-01-08 12:12] LABS: ABSOLUTE EOSINOPHILS # (AUTO) 0.1 10^3/uL (0.0-0.6); ABSOLUTE LYMPHOCYTES (AUTO) 0.8 10^3/uL (0.5-4.7); ABSOLUTE MONOCYTES (AUTO) 0.3 10^3/uL (0.1-1.4); ABSOLUTE NEUT (AUTO) 2.6 10^3/uL (1.7-8.2); BASOPHILS % (AUTO) 1.3 % (0-2); EOSINOPHILS % (AUTO) 1.7 % (0-6); HEMATOCRIT 38.2 % (36.0-47.0); HEMOGLOBIN 12.4 g/dL (12.0-15.5); LYMPHOCYTES % (AUTO) 21.8 % (13-45); MEAN CORPUSCULAR HEMOGLOBIN 27.5 pg (27.0-33.4); MEAN CORPUSCULAR HGB CONC 32.5 g/dL (32.0-36.0); MEAN CORPUSCULAR VOLUME 84 fl (80-97); MONOCYTES % (AUTO) 8.4 % (3-13); PLATELET COUNT 135 10^3/uL (150-450); RED BLOOD COUNT 4.53 10^6/uL (3.72-5.28); RED CELL DISTRIBUTION WIDTH 14.1 % (11.5-14.0); SEGMENTED NEUTROPHILS % (AUTO) 66.8 % (42-78); TOTAL CELLS COUNTED % (AUTO) 100 %; WHITE BLOOD COUNT 3.8 10^3/uL (4.0-10.5)
[2020-01-08 12:23] LABS: ALBUMIN 3.6 g/dL (3.5-5.0); ALKALINE PHOSPHATASE 55 U/L (38-126); ANION GAP 7 (5-19); ASPARTATE AMINO TRANSFERASE 25 U/L (14-36); BILIRUBIN,TOTAL 0.5 mg/dL (0.2-1.3); BLOOD UREA NITROGEN 20 mg/dL (7-20); CALCIUM 8.9 mg/dL (8.4-10.2); CARBON DIOXIDE 24 mmol/L (22-30); CHLORIDE 106 mmol/L (98-107); GLUCOSE 161 mg/dL (75-110); POTASSIUM 3.8 mmol/L (3.6-5.0); TOTAL PROTEIN 6.1 g/dL (6.3-8.2)
--- NOTE | 2020-01-08 14:14 | RADIOLOGY REPORT (SQ) ---
EXAM DESCRIPTION: CTA CHEST IMAGES COMPLETED DATE/TIME: 01/08/2020 1:48 pm REASON FOR STUDY: sob COMPARISON: None. TECHNIQUE: CT scan of the chest performed using helical scanning technique with dynamic intravenous contrast injection. Images reviewed with lung, soft tissue and bone windows. Reconstructed coronal and sagittal MPR images reviewed. Additional 3 dimensional post-processing performed to develop Maximal Intensity Projection images (MN P). All images stored on PACS. All CT scanners at this facility use dose modulation, iterative reconstruction, and/or weight based d osing when appropriate to reduce radiation dose to as low as reasonably achievable (ALARA). [facility]: Dose Right [facility]: CareDose [facility]: Dose Right [facility]: Teradose 4D [facility]: DeNovaMed CONTRAST TYPE AND DOSE: contrast/concentration: Isovue 350.00 mmol/ml; Total Contrast Delivered: 73. 0 ml; Total Saline Delivered: 34.1 ml Contrast bolus adequate for pulmonary arteries and aorta. RENAL FUNCTION: GFR > 60. RADIATION DOSE: CT Rad equipment meets quality standard of care and radiation dose reduction techniq ues were employed. CTDIvol: 19.8 - 33.9 mGy. DLP: 1390 mGy-cm. . LIMITATIONS: Respiratory motion. FINDINGS: LUNGS AND PLEURA: No masses, infiltrates, or pneumothorax. No pleural effusions or pleura l calcifications. AORTA AND GREAT VESSELS: No aneurysm. Contrast bolus not optimized for the aorta. HEART: No pericardial effusion. No significant coronary artery calcifications. PULMONARY ARTERIES: No emboli visualized in the main pulmonary arteries or the segmental branches. HILAR AND MEDIASTINAL STRUCTURES: No identified masses or abnormal nodes. HARDWARE: None in the chest. UPPER ABDOMEN: No significant findings. Limited exam. THYROID AND OTHER SOFT TISSUES: No masses. No adenopathy. BONES: No acute or significant finding. 3D MIPS: Confirm above findings. OTHER: No other significant finding. IMPRESSION: No PE. No acute findings. COMMENT: Quality ID # [id number]: Final reports with documentation of one or more dose reduction techniques (e.g., Automated exposure control, adjustment of the mA and/or kV according to patient size, use of iterative reconstruction technique) TECHNICAL DOCUMENTATION: JOB ID: [id number] 2010 [employer]- All Rights Reserved Reading location - IP/workstation name: [email or web address]
--- NOTE | 2020-01-08 14:42 | EKG REPORT ---
SEVERITY:- ABNORMAL ECG - SINUS RHYTHM VENTRICULAR TRIGEMINY BORDERLINE T WAVE ABNORMALITIES : Confirmed by: Mirta Dubon MD 08-Jan-2020 14:41:45
--- NOTE | 2020-01-08 14:52 | ER Document Report ---
ED General - General Chief Complaint: Shortness Of Breath Stated Complaint: SHORTNESS OF BREATH Time Seen by Provider: 01/08/20 11:24 Primary Care Provider: RUTH KIRK MD [Primary Care Provider] - Follow up as needed Mode of Arrival: Ambulatory Information source: Patient TRAVEL OUTSIDE OF THE [place] IN LAST 30 DAYS: No - HPI Notes: Patient presents complaint of shortness of breath. She states is been going on for approximately 3 to 4 days. She has had no relief from inhaler. It is worse with exertion and better with rest. There is [place] no radiation of the symptoms. They have been mild to moderate. They have been intermittent. She states she has had no significant COVID exposures that she knows of. A mild dry cough. No chest pain. No previous history of DVTs or PEs. - Related Data Allergies/Adverse Reactions: hydrocodone [From Vicodin] Allergy (Verified 09/07/19 11:30) Penicillins Allergy (Verified 09/07/19 11:30) shellfish derived Allergy (Verified 09/07/19 11:30) Home Medications: asthma dm htn arthritis anemia Past Medical History - General Information source: Patient - Social History Smoking Status: Never Smoker Chew tobacco use (# tins/day): No Frequency of alcohol use: None Drug Abuse: None Family History: Reviewed & Not Pertinent Patient has homicidal ideation: No - Past Medical History Cardiac Medical History: Reports: Hx Hypercholesterolemia, Hx Hypertension Pulmonary Medical History: Reports: Hx Asthma Endocrine Medical History: Reports: Hx Diabetes Mellitus Type 2 Renal/ Medical History: Denies: Hx Peritoneal Dialysis Musculoskeletal Medical History: Reports Hx Arthritis - Rheumatoid Past Surgical History: Reports: Hx Tubal Ligation Review of Systems - Review of Systems Constitutional: Weakness. denies: Chills, Fever Cardiovascular: Palpitations. denies: Chest pain Respiratory: Cough, Short of breath -: Yes All other systems reviewed and negative Physical Exam - Vital signs Vitals: Resp Pulse Ox 17 100 01/08/20 10:12 01/08/20 10:12 Interpretation: Normal - General General appearance: Appears well, Alert - HEENT Head: Normocephalic, Atraumatic Eyes: Normal Pupils: PERRL - Respiratory Respiratory status: No respiratory distress Chest status: Nontender Breath sounds: Normal Chest palpation: Normal - Cardiovascular Rhythm: Other - irreg Heart sounds: Normal auscultation Murmur: No - Abdominal Inspection: Normal Distension: No distension Bowel sounds: Normal Tenderness: Nontender Organomegaly: No organomegaly - Back Back: Normal, Nontender - Extremities General upper extremity: Normal inspection, Nontender, Normal color, Normal ROM, Normal temperature General lower extremity: Normal inspection, Nontender, Normal color, Normal ROM, Normal temperature, Normal weight bearing. No: Janelle's sign - Neurological Neuro grossly intact: Yes Cognition: Normal Orientation: AAOx4 Tiff Coma Scale Eye Opening: Spontaneous Tiff Coma Scale Verbal: Oriented Chanelle Coma Scale Motor: Obeys Commands Tiff Coma Scale Total: 15 Speech: Normal Motor strength normal: LUE, RUE, LLE, RLE Sensory: Normal - Psychological Associated symptoms: Normal affect, Normal mood - Skin Skin Temperature: Warm Skin Moisture: Dry Skin Color: Normal Course - Re-evaluation Re-evalutation: 01/08/20 14:49 Patient presents with shortness of breath. She states that she has gotten no relief with her inhaler. She does not sound tight or as if she is wheezing on exam. When she is lying in the bed her saturations are 100% on room air and her respirations are unlabored. It seems to be with exertion that she gets short of breath. There is no evidence of overt failure on my work-up either. No evidence of PE or significant lung pathology on the CAT scan. I do notice the patient is in trigeminy and this persist throughout her ED course. She has never been told of this before she states. I have discussed this case with Dr. Hickman, the critical care specialist. He states he will see the patient in the office this week and that he would like me to start her on a beta-terri which I am going to do. This is all been discussed with the patient. - Vital Signs Vital signs: Temp Pulse Resp BP Pulse Ox 98.1 F 19 128/73 H 99 01/08/20 10:16 01/08/20 13:02 01/08/20 13:02 01/08/20 13:02 - Laboratory Result Diagrams: 01/08/20 10:25 01/08/20 10:25 Laboratory results interpreted by me: 01/08/20 01/08/20 01/08/20 10:25 10:25 10:25 WBC 3.8 L RDW 14.1 H Plt Count 135 L Sodium 136.6 L Glucose 161 H NT-Pro-B Natriuret Pep 282 H Total Protein 6.1 L - Diagnostic Test Radiology reviewed: Image reviewed, Reports reviewed - EKG Interpretation by Me EKG shows normal: Sinus rhythm Rate: Normal - 81 Rhythm: PVC's - trigem Mazama/QRS: No: LBBB Discharge - Discharge Clinical Impression: Ventricular trigeminy Dyspnea Qualifiers: Dyspnea type: dyspnea on exertion Qualified Code(s): R06.00 - Dyspnea, unspecified Condition: Stable Disposition: HOME, SELF-CARE Instructions: PVCs (OM), Dyspnea, Nonspecific (OM) Additional Instructions: Please call Dr. Hickman as soon as possible to arrange follow-up Prescriptions: Metoprolol Succinate [Toprol Xl 25 mg Tab.sr] 25 mg PO DAILY #30 tab.sr.24h Referrals: SARA HICKMAN MD [ACTIVE STAFF] - 01/10/20
[2020-01-08] MEDS ORDERED: METOPROLOL SUCCINATE 25 MG TAB.SR.24H PO ONE (14:53)
[2020-01-08 15:36] VITALS: BP 133/74
== END 2020-01-08 15:30 | disposition home or self-care (01) ==
LOC: ER 09:37
DX: R00.8 Other abnormalities of heart beat (principal); R06.00 Dyspnea, unspecified; R06.02 Shortness of breath; R53.1 Weakness; E78.00 Pure hypercholesterolemia, unspecified; I10 Essential (primary) hypertension; Z88.6 Allergy status to analgesic agent; Z88.0 Allergy status to penicillin; Z98.51 Tubal ligation status
CPT/HCPCS: 93005; 94640; 99285; 36415; 85025; 80053; 84484; 83880; 71045; 71275; 93010; A9270

== ENCOUNTER → 2020-02-18 | Outpatient (CLI) | payer MEDICARE, OTHER ==
[~2020-02-18] MED LIST: REGADENOSON INJ 0.4 MG/5 ML DISP.SYRIN IV ONE
--- NOTE | 2020-02-18 13:31 | DRAGON STRESS TEST REPORT ---
Pharmacological nuclear stress test Date: 02/18/2020 Referring physician: Rome Hollis MD Performing physician: Rome Hollis MD Indication: Chest pain Clinical history 64-year-old lady with diabetes mellitus and systemic hypertension as well as dyslipidemia who presented to the hospital with chest pain and dyspnea. Initial evaluation in the emergency room was negative except for premature ventricular contractions on EKG. Given risk factors for coronary disease we decided to proceed with pharmacological nuclear stress test to evaluate for myocardial ischemia as cause of symptoms. Procedure The patient presented to the stress lab. Initially rest images were obtained according to standard protocol after the injection of 15.65 millicurie technetium 99m sestamibi. Subsequently the patient underwent pharmacological stress utilizing 0.4 mg of regadenoson intravenously. The patient's EKG and vital signs were monitored throughout the procedure. Subsequently patient was injected with 46.8 millicuries of technetium 99m sestamibi. After a period of rest, stress images were obtained according to standard protocol. EKG showed sinus rhythm at 73 beats per minute with frequent premature ventricular contractions. The patient's stress EKG did not show any evidence for myocardial ischemia. There were no arrhythmias observed. Raw as well as processed rest and stress images were reviewed. There was mild to moderate gut uptake which did not interfere with the study. The rest and stress images show uniform uptake of radioactive isotope without any fixed or reversible defects to suggest myocardial ischemia or myocardial infarction. There is normal contractility post-rest. The calculated ejection fraction is 52 %. The TID ratio is 1.04. Conclusion The stress EKG is negative for myocardial ischemia There is no scintigraphic evidence of myocardial infarction or ischemia provoked by pharmacological stress. There is normal contractility post-stress. The gated left ventricular ejection fraction is 52 %. The patient will be given an appointment to discuss these results. [facility]
--- NOTE | 2020-02-18 15:00 | XCELERA REPORT ---
[address] [address] Transthoracic Echocardiogram Report Name: ISABELLA GRIFFITH Age: 65 yrs Gender: Female : 1955 Patient Status: Outpatient Patient Location: RAD Study Date: 02/18/2020 08:53 AM History: Dyspnea Height: 67 in Weight: 274 lb BSA: 2.3 m2 Procedure: A complete two-dimensional transthoracic echocardiogram was performed (2D, M-mode, spectral and color flow Doppler). The study was technically difficult with many images being suboptimal in quality. Reason For Study: SOB Previous Evaluation: No previous studies were available. History: Shortness of breath. Chest pain. Ordering Physician: SARA HOLLIS Performed By: Xochilt Cheatham Interpretation Summary The study was technically difficult with many images being suboptimal in quality. Left ventricular systolic function is normal. The Ejection Fraction estimate is 55-60% The right ventricle is normal in size and function. There is no mitral regurgitation noted. There is no aortic valve stenosis There is a trace amount of tricuspid regurgitation Doppler findings do not suggest pulmonary hypertension. There is no pericardial effusion. MMode/2D Measurements & Calculations RVDd: 2.2 cm LVIDd: 5.4 cm FS: 34.2 % Ao root diam: 2.8 cm IVSd: 1.1 cm LVIDs: 3.6 cm EDV(Teich): 142.9 ml Ao root area: 6.2 cm2 LVPWd: 1.1 cm ESV(Teich): 53.3 ml EF(Teich): 62.7 % Doppler Measurements & Calculations MV E max jc: MV dec slope: Ao V2 max: LV V1 max P.0 cm/sec 342.4 cm/sec2 130.1 cm/sec 4.5 mmHg MV A max jc: MV dec time: 0.18 sec Ao max PG: LV V1 max: 81.7 cm/sec 6.8 mmHg 105.6 cm/sec MV E/A: 0.75 PA V2 max: TR max jc: 84.7 cm/sec 108.3 cm/sec PA max P.9 mmHgTR max P.7 mmHg Left Ventricle The left ventricle is grossly normal size. There is mild to moderate concentric left ventricular hypertrophy. Left ventricular systolic function is normal. The Ejection Fraction estimate is 55-60%. Doppler measurements suggest impaired left ventricular relaxation, which is associated with grade I/IV or mild diastolic dysfunction. Regional wall motion abnormalities cannot be excluded due to limited visualization. Right Ventricle The right ventricle is normal in size and function. Atria The right atrium is normal. The left atrium is mildly dilated. The interatrial septum is intact with no evidence for an atrial septal defect. There is no Doppler evidence for an interatrial shunt. Mitral Valve The mitral valve is grossly normal. There is no mitral regurgitation noted. Aortic Valve The aortic valve is not well visualized secondary to technical limitations. The aortic valve opens well. There is no aortic valve stenosis. No aortic regurgitation is present. Tricuspid Valve There is a trace amount of tricuspid regurgitation. Doppler findings do not suggest pulmonary hypertension. Pulmonic Valve The pulmonic valve is not well visualized. Great Vessels The aortic root is normal size. The inferior vena cava appeared normal and decreased > 50% with respiration (RAP 5-10 mmHg). Effusions There is no pericardial effusion. : SARA HOLLIS Anil
== END ==
LOC: RAD 07:34
PROVIDERS: ATTEND Internal Medicine
DX: I25.9 Chronic ischemic heart disease, unspecified (principal); R06.02 Shortness of breath; R07.9 Chest pain, unspecified; I10 Essential (primary) hypertension; E78.5 Hyperlipidemia, unspecified; E11.9 Type 2 diabetes mellitus without complications
CPT/HCPCS: 93306; 93017; 78452; A9500; J2785; Q9969